=== PATIENT | male | born 1930 | race Caucasian/White ===

== ENCOUNTER 2020-06-06 00:21 | Inpatient (IN) | payer MEDICARE, BC ==
[2020-06-06] VITALS (9 sets, daily range): BP systolic 67–128; BP diastolic 30–65
[~2020-06-06] VITALS: Ht 165.1 cm; Wt 69.0 kg
[~2020-06-06 00:21] MED LIST: ALUM-MAG HYDRO360 ML PO; ARICEPT 5 MG TAB5 MG PO; ASA81BEC; ASPIR 8181 MG PO; AUGMENTIN 875875 MG PO; BACTRIM DS TAB1 EACH PO; CRESTOR10 MG PO; FOSAMAX 70 MG T70 MG PO; HYDROCODON-ACE1 EAC7 PO; HYDROCODONE; LEVAQUIN 500 M500 MG PO; LOPERAMIDE 2 MG2 M1 PO; LOPERAMIDE2 MG PO; MOBIC7.5 MG PO; MOM PO; NEXIUM40 MG PO; NORCO 5-325 TA1 EACH PO; PROBIOTIC1 EAC1 PO; SENOKOT-S TABL1 EACH PO; STOOL SOFTENER100 MG PO; TUMS PO; TYLENOL EXTRA500 MG PO; TYLENOL325 MG PO
[2020-06-06] MEDS ORDERED: POTASSIUM20 PO (00:37)
[2020-06-06] MEDS ORDERED: RESOURCE 2.0237 ML PO (00:38)
[2020-06-06] MEDS ORDERED: LASIX 20 MG TAB20 MG PO (00:38)
[2020-06-06] MEDS ORDERED: MILK OF MA400 MG/5 M PO (00:39)
[2020-06-06] MEDS ORDERED: BISACODYL10 MG RECTAL (00:40)
[2020-06-06] MEDS ORDERED: EUCERIN ADVANCE85 GM TOP (00:41)
[2020-06-06] MEDS ORDERED: MIRALAX119 GM PO (00:41)
[2020-06-06 00:54] LABS: HEMATOCRIT 32.3 % (42.0-52.0); HEMOGLOBIN 10.9 gm/dL (14.0-18.0); MCHC 33.8 g/dL (28.0-37.0); MCV 82.8 fL (80.0-100.0); MPV 7.4 fl. (7.2-11.1); NUCLEATED RBCS 0 /100WBC; PLATELET COUNT* 336 thou/uL (150-400); RDW-CV 14.9 % (10.5-14.5)
[2020-06-06 01:20] LABS: CALCIUM 8.5 mg/dL (8.5-10.1); CREATININE 3.4 mg/dL (0.6-1.3); POTASSIUM 4.8 mmol/L (3.5-5.1)
[2020-06-06 01:24] LABS: TOTAL BILIRUBIN 0.2 mg/dL (<0.1-1.0); TOTAL PROTEIN 7.7 g/dL (6.4-8.2)
[2020-06-06 01:36] LABS: ABSOLUTE EOSINOPHILS 0.2 thou/uL (0.0-0.7); ABSOLUTE LYMPHOCYTES 0.7 thou/uL (0.8-5.3); ABSOLUTE MONOCYTES 0.6 thou/uL (0.0-1.2); ABSOLUTE NEUTROPHILS 7.5 thou/uL (1.6-8.1); CLUMPED PLTS FEW; PLATELET ESTIMATE ADEQUATE
[2020-06-06 02:01] LABS: URINE BILIRUBIN NEGATIVE (Negative); URINE BLOOD 1+ (Negative); URINE CLARITY CLEAR; URINE COLOR YELLOW; URINE GLUCOSE-RANDOM NEGATIVE (Negative); URINE KETONES NEGATIVE (Negative); URINE LEUKOCYTES-REFLEX 3+ (Negative); URINE NITRITE-REFLEX NEGATIVE (Negative); URINE PROTEIN TRACE (Negative); URINE UROBILINOGEN 0.2 E.U./dl (0.2-1.0)
[2020-06-06 02:18] LABS: BACTERIA-REFLEX >30 Many /HPF (None Seen); CASTS None Seen /LPF (None Seen); CRYSTALS None Seen /LPF (None Seen); MUCUS 4-6 Moderate strn/LPF (None Seen); SQUAMOUS 0-3 Few /LPF (0-3); URINE RBC 3-10 Few /HPF (0-2); URINE WBC-REFLEX >25 Many /HPF (0-5); WBC CLUMPS Moderate (None Seen)
--- NOTE | 2020-06-06 09:17 | EKG ---
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 : 1930 Requested By: Marzena Shelby Order Number: [id number] MD: Helio Jacob Measurements Intervals [place] Rate: 136 P: NE: QRS: -111 QRSD: 255 T: -8 QT: 437 QTc: 658 Interpretive Statements normal sinus rhythm with pac's artifact noted Right bundle branch block Compared to ECG 01/12/2017 03:12:01 Ventricular tachycardia now present pac's now present Electronically Signed On 06-06-2020 9:17:38 CDT by Helio Jacob [email or web address] <ELECTRONICALLY SIGNED> By: Helio Jacob MD, [facility] 06/06/20 0917 0027 0027 Helio Jacob MD, [facility] /EPI
--- NOTE | 2020-06-06 09:19 | EKG ---
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 : 1930 Requested By: Marzena Shelby Order Number: [id number] MD: Helio Jacob Measurements Intervals [place] Rate: 46 P: 0 [facility]: QRS: 49 QRSD: 142 T: 22 QT: 485 QTc: 425 Interpretive Statements Sinus bradycardia high degreee av block noted Right bundle branch block Compared to ECG 06/06/2020 00:27:05 high degree av block noted Electronically Signed On 06-06-2020 9:19:52 CDT by Helio Jacob [email or web address] <ELECTRONICALLY SIGNED> By: Helio Jacob MD, FACC 06/06/20 0919 0359 0359 Helio Jacob MD, [facility] /EPI
[2020-06-07] VITALS (62 sets, daily range): BP systolic 53–179; BP diastolic 29–139
[2020-06-07 05:28] LABS: ABSOLUTE NEUTROPHILS 14.4 thou/uL (1.6-8.1); BASOPHILS 0.3 %; HEMATOCRIT 31.4 % (42.0-52.0); HEMOGLOBIN 10.5 gm/dL (14.0-18.0); LYMPHOCYTES 5.7 %; MCH 28.1 pg (26.0-34.0); MCHC 33.4 g/dL (28.0-37.0); MCV 84.1 fL (80.0-100.0); MONOCYTES 11.7 %; MPV 7.2 fl. (7.2-11.1); NUCLEATED RBCS 0 /100WBC; PLATELET COUNT* 335 thou/uL (150-400); POLYS 82.3 %; RBC 3.73 mil/uL (4.50-6.00); RDW-CV 15.4 % (10.5-14.5); WBC 17.5 thou/uL (4.0-11.0)
[2020-06-07 05:48] LABS: CALCIUM 8.1 mg/dL (8.5-10.1); CREATININE 3.8 mg/dL (0.6-1.3); POTASSIUM 4.2 mmol/L (3.5-5.1)
[2020-06-07] MEDS ORDERED: SYNTHROID50 MCG PO (09:59)
--- NOTE | 2020-06-07 17:10 | CON ---
[address] [address] CONSULTATION Name: CHASTITY GAINES Room: [address] IN .R.#: [id number] Admission: 06/06/20 Attend Phys: Rosendo Gtz MD Discharge: Date of : [birth year] Report #: [id number] THIS REPORT FOR: //name// cc: Rikki Siddiqui MD, Srinath MD ~ THIS REPORT FOR: //name// DATE OF SERVICE: 06/07/2020 CARDIOLOGY CONSULTATION HISTORY OF PRESENT ILLNESS: The patient is an 89-year-old white male who I was asked to see in the hospital today after he was noted to be bradycardic. Unfortunately, the patient is very demented and is noncommunicative. He lives in a long-term. There are no family members available. He has been here to [place] in the past. He has a long history of chronic pain syndrome. He has chronic back pain and has had steroid injections in the past. He is not very active at this time. He was actually here in 2017 after he fell. He has a history of chronic venous insufficiency and chronic kidney disease. He has a long history of dementia and lives in a memory center. He was brought to the Emergency Room 2 nights ago from the long-term. He apparently was hypotensive, had a fever, was very weak. He lives in the [place] long-term in [place], [place]. He was noted to have chronic kidney disease. He has been treated with vasopressors and fluids. He apparently has been falling at the long-term. He has chronic edema of his feet. PAST MEDICAL HISTORY: He has a history of prostate cancer, treated with radiation therapy. Skin cancer removal, chronic edema of his feet. MEDICATIONS: At the long-term consisted of Lasix, potassium, Nexium, Crestor, hydrocodone. ALLERGIES: He has no known drug allergies. FAMILY HISTORY: Cannot be obtained. SOCIAL HISTORY: No history of smoking or alcohol abuse. PHYSICAL EXAMINATION: GENERAL: Revealed an elderly, frail-appearing male, lying in bed. He did not appear to be in any distress at this time. VITAL SIGNS: On IV Levophed and dopamine was 100 systolic, pulse is 70, temperature last night was 101. HEENT: He was anicteric. Conjunctivae are pink. Mucous membranes were dry. NECK: Veins do not appear distended. CHEST: [place] [address] CONSULTATION Name: LIANACHASTITY Beverly Room: [address]#: [id number] Admission: 06/06/20 Attend Phys: Rosendo Gtz MD Discharge: Date of : [birth year] Report #: [id number] CARDIOVASCULAR: Regular, tachycardia. ABDOMEN: Soft. EXTREMITIES: Had no pitting edema. SKIN: Cool and dry. NEUROLOGIC: He would not follow commands. RADIOLOGICAL DATA: His ECG on admission appeared to show high-degree AV block with a ventricular escape rhythm, only approximately 40 beats per minute with a right bundle branch block. Followup ECG showed episodes of type 2 second-degree AV block, Mobitz type 1 with a right bundle branch block. Currently, he appears to be in sinus rhythm with a first-degree AV block. The patient had an echocardiogram in 2017 here at [place] that showed ejection fraction of 60%. His x-rays since he has been here last night included a chest x-ray that showed kyphosis, hiatal hernia, cardiomegaly, some atelectasis, possible pneumonia. LABORATORY DATA: Sodium 141, potassium 4.2. BUN on admission was 77, creatinine 3.8, glucose 181. Albumin 3.0. Troponin 0.06. White blood cell count 17.5, hematocrit 31.4. IMPRESSION AND RECOMMENDATIONS: 1. Episode of high-degree atrioventricular block. I would avoid beta-blockers. If recurrent, he would require pacemaker. 2. Dementia. 3. Hypertension. Suspect sepsis. 4. Chronic kidney disease. The patient is being seen by Nephrology. 5. Elevated blood sugar. I would rule out diabetes. 6. Anemia. No history of bleeding. <ELECTRONICALLY SIGNED> By: Helio Jacob MD, FACC 06/07/20 1710 0924 [id number] Jacob MD, FACC /nt
[2020-06-07 20:03] LABS: HEMATOCRIT 32.8 % (42.0-52.0); HEMOGLOBIN 10.5 gm/dL (14.0-18.0); MCH 27.6 pg (26.0-34.0); MCV 86.2 fL (80.0-100.0); MPV 7.7 fl. (7.2-11.1); NUCLEATED RBCS 0 /100WBC; RBC 3.81 mil/uL (4.50-6.00); RDW-CV 15.7 % (10.5-14.5); WBC 18.3 thou/uL (4.0-11.0)
[2020-06-07 20:07] LABS: CREATININE 4.2 mg/dL (0.6-1.3)
[2020-06-07 20:08] LABS: PLATELET COUNT* 131 thou/uL (150-400)
[2020-06-07 20:15] LABS: POTASSIUM 5.2 mmol/L (3.5-5.1)
[2020-06-07 20:16] LABS: ALBUMIN 2.3 g/dL (3.4-5.0); TOTAL BILIRUBIN 0.9 mg/dL (<0.1-1.0); TOTAL PROTEIN 7.5 g/dL (6.4-8.2)
[2020-06-07 20:21] LABS: ABSOLUTE LYMPHOCYTES 1.1 thou/uL (0.8-5.3); ABSOLUTE MONOCYTES 1.1 thou/uL (0.0-1.2); ABSOLUTE NEUTROPHILS 16.1 thou/uL (1.6-8.1); PLATELET ESTIMATE DECREASED
[2020-06-07 20:22] LABS: LARGE PLATELETS FEW
[2020-06-08] VITALS (14 sets, daily range): BP systolic 87–147; BP diastolic 41–100
[2020-06-08 06:06] LABS: ABSOLUTE MONOCYTES 0.6 thou/uL (0.0-1.2); ABSOLUTE NEUTROPHILS 19.1 thou/uL (1.6-8.1); BASOPHILS 0.1 %; HEMATOCRIT 31.9 % (42.0-52.0); HEMOGLOBIN 10.3 gm/dL (14.0-18.0); MCH 27.5 pg (26.0-34.0); MCHC 32.3 g/dL (28.0-37.0); MCV 85.1 fL (80.0-100.0); MONOCYTES 2.7 %; MPV 8.2 fl. (7.2-11.1); NUCLEATED RBCS 0 /100WBC; PLATELET COUNT* 73 thou/uL (150-400); POLYS 92.2 %; RBC 3.75 mil/uL (4.50-6.00); RDW-CV 15.7 % (10.5-14.5); WBC 20.7 thou/uL (4.0-11.0)
[2020-06-08 06:23] LABS: PREALBUMIN 9.8 mg/dL (18.0-35.7)
[2020-06-08 06:31] LABS: ALBUMIN 2.2 g/dL (3.4-5.0); ALKALINE PHOSPHATASE 95 U/L (46-116); ANION GAP 21 mmol/L (7-16); BUN 78 mg/dL (7-18); CALCIUM 8.2 mg/dL (8.5-10.1); CHLORIDE 107 mmol/L (98-107); CO2 14 mmol/L (21-32); CREATININE 4.4 mg/dL (0.6-1.3); GLUCOSE 149 mg/dL (70-99); NT-PRO BRAIN NAT PEPTIDE > 35000 pg/mL (<300); POTASSIUM 4.6 mmol/L (3.5-5.1); SODIUM 142 mmol/L (136-145); TOTAL BILIRUBIN 0.7 mg/dL (<0.1-1.0); TOTAL PROTEIN 7.3 g/dL (6.4-8.2)
[2020-06-08 06:50] LABS: SGPT 4844 U/L (30-65)
[2020-06-08 07:14] LABS: SGOT 10507 U/L (15-37)
[2020-06-09 11:06] LABS: COMPLEMENT-C4 15 mg/dL (14-44)
== END 2020-06-08 11:37 | DRG 871 ==
LOC: M.ERS 00:21 → M.TBA-ER 02:43 → M.ICU 21:41
PROVIDERS: Internal Medicine; Internal Medicine Nephrology; Personal Emergency Response Attendant; ADMIT Internal Medicine; ATTEND Internal Medicine
PROC: B548ZZA Ultrasonography of Superior Vena Cava, Guidance (ICD-10-PCS; principal; 2020-06-06)
PROC: 02HV33Z Insertion of Infusion Device into Superior Vena Cava, Percutaneous Approach (ICD-10-PCS; principal; 2020-06-06)
DX: A41.9 Sepsis, unspecified organism (principal); R65.21 Severe sepsis with septic shock; N17.0 Acute kidney failure with tubular necrosis; J69.0 Pneumonitis due to inhalation of food and vomit; J96.00 Acute respiratory failure, unspecified whether with hypoxia or hypercapnia; G93.49 Other encephalopathy; N13.6 Pyonephrosis; M19.90 Unspecified osteoarthritis, unspecified site; D64.9 Anemia, unspecified; F03.90 Unspecified dementia, unspecified severity, without behavioral disturbance, psychotic disturbance, mood disturbance, and anxiety; K21.9 Gastro-esophageal reflux disease without esophagitis; R31.9 Hematuria, unspecified; E86.0 Dehydration; G89.4 Chronic pain syndrome; N18.9 Chronic kidney disease, unspecified; I44.39 Other atrioventricular block; I12.9 Hypertensive chronic kidney disease with stage 1 through stage 4 chronic kidney disease, or unspecified chronic kidney disease; I95.9 Hypotension, unspecified; Z20.828 Contact with and (suspected) exposure to other viral communicable diseases; Z66 Do not resuscitate; Z51.5 Encounter for palliative care; Z85.46 Personal history of malignant neoplasm of prostate; Z85.828 Personal history of other malignant neoplasm of skin; Z79.899 Other long term (current) drug therapy; Z28.89 Immunization not carried out for other reason